=== PATIENT | male | born 1955 | race Caucasian/White ===

== ENCOUNTER → 2021-04-17 | Outpatient (CLI) | payer OTHER ==
[~2021-04-17] MED LIST: RT-ALBUTEROL SULF 2.5 MG/3 ML PRE-MIX VIAL INH ONE
--- NOTE | 2021-04-17 17:19 | Diagnostic Imaging Report ---
EXAMINATION: CT chest without contrast (lung screening). TECHNIQUE: Multiple contiguous axial images were obtained through the chest without the use of intravenous contrast according to lung cancer screening protocol. All CT scans use one or more of the following dose optimizing techniques: automated exposure control, MA and/or KvP adjustment based on patient size and exam type or iterative reconstruction. HISTORY: 50 pack year history of smoking. COMPARISON: None available. FINDINGS: Thyroid: The thyroid is normal. Mediastinum: Heart size is normal without significant pericardial effusion. Calcifications of the aorta and coronary vessels. Thoracic aorta is normal in caliber. No suspicious lymphadenopathy. Lungs and airways: There are background emphysematous changes in the lungs without consolidation, pleural effusion, or pneumothorax. There is mild scarring within the lung apices. There is a 0.5 x 0.4 cm right upper lobe subpleural pulmonary nodule (series 2 image 136). There is a 0.3 x 0.4 cm left upper lobe subpleural pulmonary nodule (series 2 image 51). There is a 0.3 cm left upper lobe pulmonary nodule (series 2 image 109). There is a 0.6 x 0.4 cm left upper lobe pulmonary nodule (series 2 image 124). There is a calcified granuloma within the left lower lobe. There is mild bronchial wall thickening. Upper abdomen: The subphrenic structures are normal. Musculoskeletal: No suspicious osseous lesion or compression fracture. IMPRESSION: 1. Bilateral pulmonary nodules measuring up to 0.5 cm average. Recommend 6 month follow-up low-dose CT. 2. COPD. LUNG-RADS CATEGORY: 3 MODIFIER: S Dictated by: Dictated on workstation # [id number]
== END ==
LOC: RAD 15:15
PROVIDERS: ATTEND Family Medicine
DX: Z12.2 Encounter for screening for malignant neoplasm of respiratory organs (principal); R91.8 Other nonspecific abnormal finding of lung field; R06.00 Dyspnea, unspecified; F17.210 Nicotine dependence, cigarettes, uncomplicated
CPT/HCPCS: 71271; 94060; 94726; 94729

== ENCOUNTER → 2021-11-16 | Outpatient (CLI) | payer OTHER | LOC: CARD 08:30 | PROVIDERS: ATTEND Internal Medicine Cardiovascular Disease | DX: I35.8 Other nonrheumatic aortic valve disorders (principal); I11.9 Hypertensive heart disease without heart failure | CPT/HCPCS: 93306 ==

== ENCOUNTER → 2021-11-19 | Outpatient (CLI) | payer OTHER ==
[~2021-11-19] MED LIST changes: +CATHETER FLUSH 10 ML SYR IVP PRN; +REGADENOSON 0.4 MG/5 ML SYR (LEXISCAN) IV ONE; -RT-ALBUTEROL SULF 2.5 MG/3 ML PRE-MIX VIAL INH ONE
[2021-11-19 09:57] VITALS: BP 148/103
--- NOTE | 2021-11-19 11:57 | Cardiology Stress Test Report ---
Stress Test Report Date of Procedure/Referring: Date of Procedure: Nov 19, 2021 PCP Admitting Physician Admitting Physician: Attending Physician: Jorge Tellez MD Indications: CP Baseline Heart Rate: 79 Baseline Blood Pressure: Blood Pressure Systolic: 148 Blood Pressure Diastolic: 103 Baseline Vitals Vital Signs Date Time Temp Pulse Resp B/P (MAP) Pulse Ox O2 Delivery O2 Flow Rate FiO2 11/19/21 09:57 79 148/103 (118) 99 Baseline EKG: Baseline EKG: NSR Summary After explaining the procedure to the patient, he signed a consent and then brought to the stress nuclear laboratory. Patient received 0.4 mg Lexiscan for stress test, ECG, heart rate and blood pressure were monitored continuously. Resting and stress dose of radio tracer were injected, imaging was acquired and reviewed in short axis, horizontal long axis and vertical long axis views. TID: 1.09 SSS: 7 SDS: 3 EF: 62 1. Patient tolerated Lexiscan well 2. Reversible ischemia involving the mid to apical anterolateral and inferolateral wall 3. Normal left ventricular size, ejection fraction 62% JORGE TELLEZ MD Nov 19, 2021 11:57
== END ==
LOC: CARD 08:43
PROVIDERS: ATTEND Internal Medicine Cardiovascular Disease
DX: I25.10 Atherosclerotic heart disease of native coronary artery without angina pectoris (principal); I10 Essential (primary) hypertension
CPT/HCPCS: 78452; 93017; A9502

== ENCOUNTER 2021-12-07 09:00 | Day surgery (SDC) | payer OTHER ==
[~2021-12-07] VITALS: Ht 188 cm; Wt 89.0 kg
[2021-12-07] VITALS (12 sets, daily range): BP systolic 118–150; BP diastolic 85–108
[2021-12-07 07:36] LABS: BILIRUBIN,URINE NEGATIVE (NEGATIVE); CLARITY,URINE CLOUDY; COLOR,URINE YELLOW; GLUCOSE, URINE (UA) NEGATIVE (NEGATIVE); KETONES,URINE NEGATIVE (NEGATIVE); LEUKOCYTE ESTERASE ,URINE NEGATIVE (NEGATIVE); NITRITE,URINE NEGATIVE (NEGATIVE); PH,URINE 5.5 (5-9); PROTEIN,URINE TRACE (NEGATIVE)
[2021-12-07 07:42] LABS: HEMATOCRIT 57 % (40-54); HEMOGLOBIN 19.7 g/dL (13.3-17.7); MEAN CORPUSCULAR HEMOGLOBIN 33 pg (25-34); MEAN CORPUSCULAR HGB CONC 34 g/dL (32-36); MEAN CORPUSCULAR VOLUME 96 fL (80-99); PLATELET COUNT 211 10^3/uL (130-400); WHITE BLOOD COUNT 11.6 10^3/uL (4.3-11.0)
--- NOTE | 2021-12-07 07:46 | Diagnostic Imaging Report ---
Indication: 66-year-old male. There is a pre-heart catheter assessment Comparisons: None FINDINGS: Single view chest shows the cardiac contour to be normal. There is senescent changes with chronic parenchymal changes but no acute consolidations. There is slight prominence of central lung markings with some mild bronchiectatic changes with some peribronchial cuffing. There is no effusion or pneumothorax. Soft tissues and bony thorax are unremarkable. IMPRESSION: Mild central reactive airway changes such as bronchitis but no acute consolidations. Dictated by: Dictated on workstation # [id number]
--- NOTE | 2021-12-07 07:46 | Cardiac Procedure Note-CS/ASA ---
Pre-Procedure Note Pre-Op Procedure Note Date of Available H&P: Nov 20, 2021 Date H&P Reviewed: Dec 07, 2021 Time H&P Reviewed: 07:46 History & Physical: H&P Reviewed, Patient Examed, No changes noted Pre-Operative Diagnosis: CAD, PAD Conscious Sedation Pre-Proced Time 07:46 ASA Score 3 For ASA 3 and 4: Consider anesthesia and medical clearance. Also, for patients with a history of failed moderate sedation consider anesthesia. Airway Lungs Heart ASA score ASA 1: a normal healthy patient ASA 2: a patient with a mild systemic disease (mid diabetes, controlled hypertension, obesity ASA 3: a patient with a severe systemic disease that limits activity (angina, COPD, prior Myocardial infarction) ASA 4: a patient with an incapacitating disease that is a constant threat to life (CHF, renal failure) ASA 5: a moribund patient not expected to survive 24 hrs. (ruptured aneurysm) ASA 6: a declared brain- patient whose organs are being harvested. For emergent operations, add the letter E after the classification Mallampati Classification Grade 3 Sedation Plan Analgesia, Amnesia, Plan communicated to team members, Discussed options with patient/fam, Discussed risks with patient/fam The patient is an appropriate candidate to undergo the planned procedure, sedation, and anesthesia. The patient immediately re-assessed prior to indication. JORGE JALLOH MD Dec 07, 2021 07:46
[2021-12-07 07:49] LABS: ALBUMIN 4.4 GM/DL (3.2-4.5)
[2021-12-07 07:50] LABS: CALCIUM 9.7 MG/DL (8.5-10.1)
[2021-12-07 07:51] LABS: TOTAL PROTEIN 7.7 GM/DL (6.4-8.2)
[2021-12-07 07:53] LABS: BILIRUBIN,TOTAL 0.6 MG/DL (0.1-1.0)
[2021-12-07 07:55] LABS: CREATININE SERUM 1.05 MG/DL (0.60-1.30)
[2021-12-07 07:56] LABS: PROTHROMBIN TIME PATIENT 13.8 SEC (12.2-14.7)
[2021-12-07 07:58] LABS: BACTERIA,URINE NEGATIVE /HPF
[~2021-12-07 09:00] MED LIST changes: +ASCO100024 PO; +ASPI-1238 PO; -CATHETER FLUSH 10 ML SYR IVP PRN; +ERGO400C PO; +HEParin (CATH LAB) 2,000 ML IV ONE; +LIDOCAINE 1% INJ 30 ML (XYLOCAINE) VIAL ONE; +LISI20TA26 PO; +MIDAZOLAM 2 MG/2 ML (VERSED) VIAL ONE; +MONT-40 PO; +NS IV 1000 ML 1,000 ML IV SCH; +NS IV 1000 ML 1,000 ML ONE; -REGADENOSON 0.4 MG/5 ML SYR (LEXISCAN) IV ONE; +SIMV20TA26 PO; +fentaNYL INJ 100 MCG/2 ML AMP ONE
--- NOTE | 2021-12-07 09:10 | Cardiac Cath Report ---
Cardiac Cath Report Physician (s)/Deputy Sheriff (s) Physician JORGE JLALOH MD Pre-Procedure Diagnosis Pre-Procedure Diagnosis: CAD, PAD Post-Procedure Note Procedure Start Date: Dec 07, 2021 Name of Procedure: Left heart catheterization Abdominal aortogram with bilateral lower extremities runoff First order Findings/Procedure Note PROCEDURE NOTE: 66-year-old gentleman with increasing claudication, had abnormal arterial ultrasound of the lower extremities. Had an abnormal stress test, scheduled for cardiac catheterization possible PTCA. After explaining the procedure to the patient, all pros and cons were explained, all questions were answered. The patient signed the consent and then he was placed on the cardiac catheterization laboratory. Groin was prepped SL fashion local anesthesia was used. Sheath placed in the right femoral artery. Cristel right and left catheter were used to access the coronary system. Cristel right catheter was prolapsed to the left ventricular cavity, pressure was measured, no left ventriculogram was done, pullback LV to aorta was done. Using a long Storq wire, I exchanged the catheter and used a pigtail catheter placed in the abdominal aorta above the renal arteries and abdominal aortogram with runoff to the lower extremities was done. I noticed that there is possibility of total occlusion of the SFA. I advanced a rim catheter and placed it in the proximal common iliac artery and did runoff to the left leg then sheath evaluation for position was done with 4 ml contrast and I continue to track the contrast in the left lower extremity. At the end of the procedure the sheath was removed. Closure device was deployed FINDINGS: Hemodynamics LV 147/17, end-diastolic pressure of 17 Aorta 135/87 mean of 103 ANATOMY: Left Main has severe distal stenosis 80% stenosis Left Anterior Descending has 50% stenosis at the mid LAD Left Circumflex has no significant obstructive disease Right Coronary Artery is dominant artery with 40 to 50% proximal tubular stenosis LV Gram was not done, known to have ejection fraction 60% on echocardiogram on SPECT images Abdominal aortogram with bilateral runoff: Abdominal aorta has moderate atherosclerotic disease, no dissection or aneurysm SMA, renal arteries and MARIA M are normal Right lower extremity: Aneurysmal dilatation at the right common iliac artery, mild disease at the right common femoral artery. Total occlusion of the right SFA at its ostium with faint reconstruction by collaterals at the popliteal artery Left lower extremity: Atherosclerotic plaques in the left common iliac and common femoral artery, total occlusion at the mid left SFA reconstructed by collateral at the popliteal artery Right lower extremity angiogram: Was done with a rim catheter at the right common iliac artery confirmed the dilatation of the common iliac artery with total occlusion at the ostium of the SFA CONCLUSION: 1. Severe distal left main coronary artery stenosis with moderate stenosis at the mid LAD and tubular stenosis at the proximal right coronary artery 2. Aneurysmal dilatation of the right common iliac artery with total occlusion at the origin of the right SFA reconstructed distally at the popliteal level 3. Total occlusion of the mid left SFA reconstructed by collaterals at the popliteal artery DISCUSSION AND RECOMMENDATION: Patient will need arrangement for CABG and staged vascular intervention Anesthesia Type: Conscious Sedation Estimated blood loss (mL): 20 ml Contrast Amount: 94 ml Total Radiation Dose: 461 mGy Post-Procedure Diagnosis Post-operative diagnosis: Claudication Peripheral arterial disease Coronary artery disease Hypertension Hyperlipidemia. JORGE JALLOH MD Dec 07, 2021 09:10
[2021-12-07] MEDS ORDERED: NS IV 1000 ML 1,000 ML IV SCH (09:15)
[2021-12-07] MEDS ORDERED: PATIENT MAY USE OWN MEDS, ALL PO SCH (09:15)
[2021-12-07] MEDS ORDERED: ATOR80TA64 PO (09:33)
--- NOTE | 2021-12-07 09:34 | Discharge Inst-Post CATH ---
Discharge Inst-CATH/EP Problems Reviewed?: Yes Post Cardiac Cath/EP D/C Inst Follow Up/Plan Appointment with Dr. Germain on Saturday, December 11, 2021 at [address] Jalloh's office in 4 weeks <b>CARDIAC CATH/EP PROCEDURE DISCHARGE INSTRUCTIONS</b> ACTIVITY * Go Home directly and rest. * Limit activity of the leg (or wrist if it was used) for 7 days including aerobics, swimming, jogging, bicycling, etc. * Restrict stair-climbing for 7 days if possible, if not, climb up with your non-cath leg, then bring together on the same step. * Avoid lifting, pushing, pulling or excessive movement of the affected extremity for 7 days. * Customary sexual activity may be resumed after 2 days-use caution not to use a position that strains or causes pain to the affected extremity. * No driving for 24 hours. * NO SMOKING. * Avoid straining for bowel movements for 7 days. * Gentle walking on level ground is allowed. * Returning to work will depend on the type of procedure and the results. Your doctor will discuss this with you. CALL YOUR DOCTOR FOR ANY OF THE FOLLOWING: *If bleeding from the puncture site occurs- Apply gentle pressure to site with clean cloth and call your doctor or EMS. * If a knot or lump forms under the skin, increases in size, or causes pain. * If bruising appears to be worsening or moving further down your leg instead of disappearing. * Temperature above 101 F. CARE OF YOUR GROIN INCISION; * Bruising or purple discoloration of the skin near the puncture site is common. * You may shower only, no bathtub bathing for 5 days. Be careful to avoid slipping as your leg may feel stiff. * If a closure device was used on your femoral artery, please see the attached guide regarding care of the device and your leg. * Leave dressing on FOR 24 hours. CARE OF YOUR WRIST INCISION; * Bruising or purple discoloration of the skin near the puncture site is common. * You may shower. * DO NOT submerge wrist. * Leave dressing on FOR 24 hours. JORGE JALLOH MD Dec 07, 2021 09:34
[2021-12-07] MEDS ORDERED: oxyCODONE/APAP 5/325MG (PERCOCET 5) TABLET ONE ×2 (10:49→12:09)
[2021-12-07] MEDS ORDERED: oxyCODONE/APAP 5/325MG (PERCOCET 5) TABLET PO ONE ×2 (11:45→13:30)
== END 2021-12-07 14:10 ==
LOC: CATH 09:00
PROVIDERS: ATTEND Internal Medicine Cardiovascular Disease
DX: I25.10 Atherosclerotic heart disease of native coronary artery without angina pectoris (principal); I70.213 Atherosclerosis of native arteries of extremities with intermittent claudication, bilateral legs; I10 Essential (primary) hypertension; E78.2 Mixed hyperlipidemia; F17.210 Nicotine dependence, cigarettes, uncomplicated; Z79.899 Other long term (current) drug therapy
CPT/HCPCS: 36245; 71045; 75630; 80053; 80061; 81000; 85027; 85610; 85730; 87081; 93005; 93458; C1760; C1769; C1887; C1894; 36415